=== PATIENT | female | born 1990 | race Caucasian/White ===

== ENCOUNTER 2018-01-01 03:54 | Emergency (ER) | payer OTHER ==
[2018-01-01] MEDS ORDERED: SODIUM CHLORIDE 1,000 ML IV STA (04:12)
--- NOTE | 2018-01-01 04:18 | PDOC ---
History of Present Illness - General Chief Complaint: Pain Stated Complaint: STOMACH PAIN Time Seen by Provider: 01/01/18 04:05 History Source: Patient Exam Limitations: No Limitations - History of Present Illness Travel History: No Initial Comments: 01/01/18 04:13 27-year-old woman with past medical history of kidney stones presents with sudden onset sharp stabbing right flank pain radiates to her right groin starting at approximately midnight this evening. Patient states she took Tylenol prior to coming to the emergency department which has done nothing to help control her pain. Patient also reports having urinary hesitancy and dysuria when tried avoid prior to presenting to the hospital. Patient denies fevers, chills, chest pain, shortness of breath. Nausea present but denies vomiting. Past History - Past Medical History Allergies/Adverse Reactions: Allergies Allergy/AdvReac Type Severity Reaction Status Date / Time No Known Allergies Allergy Verified 01/01/18 04:21 Home Medications: Ambulatory Orders Cephalexin Monohydrate [Keflex -] 500 mg PO Q8H #30 capsule 01/01/18 Tamsulosin HCl [Flomax] 0.4 mg PO DAILY #10 capsule 01/01/18 COPD: No - Suicide/Smoking/Psychosocial Hx Smoking History: Never smoked Have you smoked in the past 12 months: No Hx Alcohol Use: No Drug/Substance Use Hx: No Substance Use Type: None Review of Systems - Review of Systems Able to Perform ROS?: Yes Is the patient limited Urdu proficient: No Constitutional: No: Symptoms Reported HEENTM: No: Symptoms Reported Respiratory: No: Symptoms reported Cardiac (ROS): No: Symptoms Reported ABD/GI: No: Symptoms Reported : Yes: See HPI Musculoskeletal: No: Symptoms Reported Integumentary: No: Symptoms Reported Neurological: No: Symptoms reported Endocrine: No: Symptoms Reported Hematologic/Lymphatic: No: Symptoms Reported *Physical Exam - Physical Exam General Appearance: Yes: Appropriately Dressed. No: Apparent Distress Neck: positive: Trachea midline, Supple Respiratory/Chest: positive: Lungs Clear, Normal Breath Sounds. negative: Respiratory Distress, Accessory Muscle Use Cardiovascular: positive: Regular Rhythm, Regular Rate, S1, S2. negative: Edema , Murmur Gastrointestinal/Abdominal: positive: Normal Bowel Sounds, Tender (RLQ). negative: Soft Musculoskeletal: positive: Normal Inspection, CVA Tenderness (R) Extremity: positive: Normal Capillary Refill, Normal Inspection, Normal Range of Motion Integumentary: positive: Normal Color, Dry, Warm Neurologic: positive: Alert, Normal Response ED Treatment Course - LABORATORY CBC & Chemistry Diagram: 01/01/18 04:28 01/01/18 04:28 Medical Decision Making - Medical Decision Making 01/01/18 04:15 A/P: 27-year-old woman with history of kidney stones with sudden onset right flank pain radiating to her right groin Normoactive bowel sounds Abdomen tender in the right lower quadrant Right-sided CVA tenderness present Physical exam her presentation is consistent with kidney stones. Differential diagnosis includes appendicitis, ovarian torsion, ovarian cyst, pyelonephritis, renal calculi +/- infection Labs, urine, normal saline, spiral CT if HCG(-) 01/01/18 05:53 CT as read by imaging property consultant: Positive for 5.8 mm obstructing distal right ureteral stone at the right ureterovesicular junction This causes moderate right hydronephrosis/hydroureter No left urinary tract stone or obstruction. No other acute intra-abdominal abnormalities No major small ventral hernia containing a bit of omentum but no bowel Fallopian tube occlusion device is incidentally noted. Patient is currently pain-free and has likely passed stone into the bladder. I' ll provide the patient with a strainer to collect stone for analysis. Laboratory testing is unremarkable without signs of LULU. Urinalysis notable for 1+ protein, 1+ blood, 2+ leukoesterase with 48 WBCs. I'll discharge the patient home with prescription for Flomax and Keflex. *DC/Admit/Observation/Transfer Diagnosis at time of Disposition: Renal stone UTI (urinary tract infection) Qualifiers: Urinary tract infection type: urethritis Qualified Code(s): N34.2 - Other urethritis - Discharge Dispostion Disposition: HOME Condition at time of disposition: Fair Decision to Admit order: No - Prescriptions Prescriptions: Cephalexin Monohydrate [Keflex -] 500 mg PO Q8H #30 capsule Tamsulosin HCl [Flomax] 0.4 mg PO DAILY #10 capsule - Referrals Referrals: Dennys Werner [Primary Care Provider] - Pj Lord MD [Staff Physician] - - Patient Instructions Additional Instructions: Rest, drink lots of fluids: Teas, water, soups Avoid contact with others until fevers and symptoms resolved Lots of handwashing and good hygiene Continue geyr-[id number] medications for symptomatic relief Tylenol or Motrin for fever and pain Continue all of antibiotics until completed Followup with private physician in one week for repeat urinalysis/reevaluation Strain urine to try to collect kidney stone. If you collect a stone, bring it with you to urology appointment. Take Flomax 0.4 mg daily until urology evaluation. Take Keflex 500 mg 3 times a day for the next 10 days. Return to emergency department for worsened symptoms, fevers, dehydration - Post Discharge Activity
[2018-01-01 04:21] VITALS: BP 137/95; PULSE 84; TEMP 97.6; BMI 34.3
[2018-01-01] MEDS ORDERED: ONDANSETRON 4 MG/2 ML VIAL IVPUSH ONE (04:32)
[2018-01-01] MEDS ORDERED: ONDANSETRON 4 MG/2 ML VIAL ONE (04:34)
[2018-01-01 04:36] LABS: BASO % 0.4 % (0-2.0); EOS % 1.3 % (0-4.5); HEMATOCRIT 38.1 % (32.4-45.2); HEMOGLOBIN 12.4 GM/dL (10.7-15.3); LYMPH % 39.4 % (8-40); MCH 26.9 pg (25.7-33.7); MCHC 32.5 g/dl (32.0-36.0); MEAN CELL VOLUME 82.7 fl (80-96); MEAN PLT VOLUME 8.4 fl (7.5-11.1); MONO % 6.3 % (3.8-10.2); NEUT % 52.6 % (42.8-82.8); PLATELET COUNT 212 K/MM3 (134-434); RDW 15.2 % (11.6-15.6); WHITE BLOOD COUNT 6.2 K/mm3 (4.0-10.0)
[2018-01-01 04:41] LABS: URINE APPEARANCE SLCLOUDY; URINE BILIRUBIN NEGATIVE (<2.0 mg/dL); URINE COLOR YELLOW; URINE GLUCOSE (UA) NEGATIVE (NEGATIVE); URINE KETONE NEGATIVE (NEGATIVE); URINE NITRITE NEGATIVE (NEGATIVE); URINE UROBILINOGEN NEGATIVE mg/dL (0.2-1.0)
[2018-01-01 04:44] LABS: URINE LEUK ESTERASE 2+ (NEGATIVE); URINE PROTEIN 1+ (NEGATIVE)
[2018-01-01 04:45] LABS: CALCIUM OXALATE CRYSTALS FEW /hpf (NONE SEEN); EPI CELLS FEW /HPF (FEW); URINE BACTERIA FEW /hpf (NONE SEEN); URINE MUCUS MANY
[2018-01-01 04:47] LABS: HCG,QUALITATIVE URINE NEGATIVE
[2018-01-01] MEDS ORDERED: KETOROLAC TROMETHAMINE 30 MG/1 ML VIAL IVPUSH ONE (04:49)
[2018-01-01] MEDS ORDERED: KETOROLAC TROMETHAMINE 30 MG/1 ML VIAL ONE (04:52)
[2018-01-01 05:02] LABS: ALBUMIN 3.8 g/dl (3.4-5.0); ALK PHOS 67 U/L (45-117); ANION GAP 8 (8-16); BILIRUBIN,TOTAL 0.7 mg/dL (0.2-1.0); BLOOD UREA NITROGEN 13 mg/dL (7-18); CALCIUM 8.9 mg/dL (8.5-10.1); CHLORIDE 107 mmol/L (98-107); CO2 27 mmol/L (21-32); CREATININE 0.9 mg/dL (0.55-1.02); GLUCOSE,RANDOM 105 mg/dL (74-106); POTASSIUM 3.9 mmol/L (3.5-5.1); SGOT/AST 16 U/L (15-37); SGPT/ALT 18 U/L (12-78); SODIUM 142 mmol/L (136-145); TOT PROT 7.5 g/dl (6.4-8.2)
== END 2018-01-01 06:34 | disposition home or self-care (01) ==
LOC: JER 03:54
PROC: 3E0337Z Introduction of Electrolytic and Water Balance Substance into Peripheral Vein, Percutaneous Approach (ICD-10-PCS; principal; 2018-01-01)
PROC: 3E033GC Introduction of Other Therapeutic Substance into Peripheral Vein, Percutaneous Approach (ICD-10-PCS; 2018-01-01)
PROC: 3E0333Z Introduction of Anti-inflammatory into Peripheral Vein, Percutaneous Approach (ICD-10-PCS; 2018-01-01)
DX: N20.0 Calculus of kidney (principal); Z87.442 Personal history of urinary calculi; N34.2 Other urethritis
CPT/HCPCS: 36415; 74176; 80053; 81003; 81015; 84703; 85025; 87086; 87186; 96361; 96374; 96375; 99283-25; J7030

== ENCOUNTER 2018-01-02 15:41 | Inpatient (IN) | payer OTHER ==
[~2018-01-02 15:41] MED LIST: IOHEXOL 300 MG/ML INFUS..BTL IV ONE
[2018-01-02] MEDS ORDERED: SODIUM CHLORIDE 1,000 ML IV STA ×3 (16:11→19:56)
[2018-01-02] MEDS ORDERED: KETOROLAC TROMETHAMINE 30 MG/1 ML VIAL IVPUSH ONE (16:12)
[2018-01-02] MEDS ORDERED: ACETAMINOPHEN 500 MG TABLET (FP) PO ONE (16:12)
[2018-01-02 16:14] VITALS: BMI 34.3
--- NOTE | 2018-01-02 16:43 | PDOC ---
History of Present Illness - General History Source: Patient Exam Limitations: No Limitations - History of Present Illness Initial Comments: 01/02/18 18:40 The patient is a 27 year old female with a significant past medical history of kidney stones who presents to the emergency department today for evaluation of kidney stone and pain. The patient reports severe right sided abdominal pain and right sided flank pain since last night. She describes the pain as localized , ranked 10/10 in severity. She reports associated symptoms of nausea, fever, urinary incontinence, and dysuria. The patient was seen in the emergency department yesterday and had a CT done which showed right sided kidney stone. Patient planned to follow up with urologist (01/10/18) next week. The patient states she visits our facility today due to increasing and unbearable pain. The patient denies chest pain, shortness of breath, headache, and dizziness. Denies chills, vomiting, constipation, and diarrhea. Denies hematuria and urinary urgency. Allergies: NKDA Social History: No reported alcohol, cigarette, or drug use. PCP: Dr. Dennys Werner <Thalia Ortiz - Last Filed: 01/02/18 18:43> <Celio Gordon - Last Filed: 01/02/18 19:34> - General Chief Complaint: SIRS, Suspected/Possible Stated Complaint: REVISIT/ KIDNEY STONE/FEVER Time Seen by Provider: 01/02/18 16:09 Past History <Thalia Ortiz - Last Filed: 01/02/18 18:43> - Past Medical History COPD: No Kidney Stones: Yes - Suicide/Smoking/Psychosocial Hx Smoking History: Never smoked Have you smoked in the past 12 months: No Information on smoking cessation initiated: No Hx Alcohol Use: No Drug/Substance Use Hx: No Substance Use Type: None <Celio Gordon - Last Filed: 01/02/18 19:34> - Past Medical History Allergies/Adverse Reactions: Allergies Allergy/AdvReac Type Severity Reaction Status Date / Time No Known Allergies Allergy Verified 01/02/18 16:09 Home Medications: Ambulatory Orders NK [No Known Home Medication] 01/02/18 Review of Systems - Review of Systems Able to Perform ROS?: Yes Comments:: A complete review of 10 out of 10 review of systems is taken and is negative apart from what is previously mentioned below and in the HPI. <Thalia Ortiz - Last Filed: 01/02/18 18:43> *Physical Exam - Vital Signs Last Vital Signs Temp Pulse Resp BP Pulse Ox 102.9 F H 141 H 18 140/75 100 01/02/18 16:10 01/02/18 16:10 01/02/18 16:10 01/02/18 16:10 01/02/18 16:10 - Physical Exam Comments: Vitals: Triage Vital signs reviewed General Appearance: no acute distress, well nourished well developed, Head: Atraumatic, normocephalic Eyes: Pupils equal reactive round, extraocular movement intact Neck: Supple Chest Wall: Nontender Cardiac: Regular rate and rhythm, no murmurs, no rubs, no gallops, Lungs: Clear to auscultation bilateral, good air movement bilaterally, Abdomen: (+)right sided abdominal tenderness to palpation. (+)right flank tenderness to palpation. Extremities: Full range of motion to all extremities, no cyanosis, clubbing, or edema Skin: Warm and dry, no rashes or lesions, no petechiae Psych: normal mood, normal affect <Thalia Ortiz - Last Filed: 01/02/18 18:43> - Vital Signs Last Vital Signs Temp Pulse Resp BP Pulse Ox 102.9 F H 141 H 18 140/75 100 01/02/18 16:10 01/02/18 16:10 01/02/18 16:10 01/02/18 16:10 01/02/18 16:10 <Celio Gordon - Last Filed: 01/02/18 19:34> Heart Score/ECG Review - ECG Impressions Comment:: 01/02/18 19:30 EKG performed at 1730. Demonstrates sinus tachycardia 105. No ST elevations or T -wave inversions. Interpreted by me. <Celio Gordon - Last Filed: 01/02/18 19:34> ED Treatment Course - LABORATORY CBC & Chemistry Diagram: 01/02/18 16:49 01/02/18 16:49 - ADDITIONAL ORDERS Additional order review: Laboratory Results 01/02/18 16:15 Urine Color Yellow Urine Appearance Slcloudy Urine pH 9.0 H D Ur Specific Dexter 1.016 Urine Protein 1+ H Urine Glucose (UA) Negative Urine Ketones Negative Urine Blood 3+ H Urine Nitrite Negative Urine Bilirubin Negative Urine Urobilinogen 4.0 e.u/dl H Ur Leukocyte Esterase Trace - Medications Given in the ED: ED Medications Discontinued Medications Generic Name Dose Route Start Last Admin Trade Name Freq PRN Reason Stop Dose Admin Acetaminophen 975 mg 01/02/18 16:12 01/02/18 16:14 Tylenol - PO 01/02/18 16:13 975 mg ONCE ONE Administration <Thalia Ortiz - Last Filed: 01/02/18 18:43> - LABORATORY CBC & Chemistry Diagram: 01/02/18 16:49 01/02/18 16:49 - Medications Given in the ED: ED Medications Discontinued Medications Generic Name Dose Route Start Last Admin Trade Name Freq PRN Reason Stop Dose Admin Acetaminophen 975 mg 01/02/18 16:12 01/02/18 16:14 Tylenol - PO 01/02/18 16:13 975 mg ONCE ONE Administration <Celio Gordon - Last Filed: 01/02/18 19:34> Medical Decision Making - Medical Decision Making The patient is a 27 year old female with a significant past medical history of kidney stones who presents to the emergency department today for evaluation of kidney stone and pain Plans: EKG Labs 01/02/18 16:[address] Ann. 01/02/18 17:[address] Sauceda. <Thalia Ortiz - Last Filed: 01/02/18 18:43> - Critical Care Time Total Critical Care Time (minutes): 65 Critical Care Statement: The care of this patient involved high complexity decision making to prevent further life threatening deterioration of the patient 's condition and/or to evaluate & treat vital organ system(s) failure or risk of failure. - Medical Decision Making Patient presents to the ED status post diagnosis with kidney stone yesterday today with severe worsening flank pain fever chills nausea vomiting History examination concerning for infected kidney stone. Based on no significant hydronephrosis after discussion with interventional radiology patient not candidate for nephrostomy tube. US interpreted by ED MD. [address] Ann based on presentation there is a concern for an infected stone patient to be transported to OR for stent placement for likely infected kidney stone Upon arrival to the emergency department sepsis protocol initiated patient covered with broad-spectrum antibiotics, Zosyn, treated with IV pain medication IV fluids and antiemetics Case discussed with medicine for medical clearance prior to surgery. Vitamin K ordered for slightly elevated INR Patient to be admitted for further management status post stent placement. 01/02/18 19:33 <Celio Gordon - Last Filed: 01/02/18 19:34> *DC/Admit/Observation/Transfer - Attestations Scribe Attestion: Documentation prepared by Thalia Ortiz, acting as biomedical manager for Celio Gordon MD. <Thalia Ortiz - Last Filed: 01/02/18 18:43> - Discharge Dispostion Decision to Admit order: Yes <Celio Gordon - Last Filed: 01/02/18 19:34> Diagnosis at time of Disposition: Renal colic Sepsis Qualifiers: Sepsis type: sepsis due to unspecified organism Qualified Code(s): A41.9 - Sepsis, unspecified organism
[2018-01-02] MEDS ORDERED: ONDANSETRON 4 MG/2 ML VIAL IVPUSH ONE (16:50)
[2018-01-02] MEDS ORDERED: morphine CARPU-JECT 4 MG/1 ML DISP.SYRIN IVPUSH ONE (16:50)
[2018-01-02] MEDS ORDERED: PIPERACILLIN/TAZOB 3.375 GM 3.375 GM in DEXTROSE 5%-WATER - 50 ML IVPB ONE (16:51)
[2018-01-02 16:54] LABS: URINE APPEARANCE SLCLOUDY; URINE BILIRUBIN NEGATIVE (<2.0 mg/dL); URINE COLOR YELLOW; URINE GLUCOSE (UA) NEGATIVE (NEGATIVE); URINE KETONE NEGATIVE (NEGATIVE); URINE LEUK ESTERASE TRACE (NEGATIVE); URINE NITRITE NEGATIVE (NEGATIVE); URINE UROBILINOGEN 4.0 E.U/dl mg/dL (0.2-1.0)
[2018-01-02 16:55] LABS: URINE PROTEIN 1+ (NEGATIVE)
[2018-01-02 17:00] LABS: EPI CELLS RARE /HPF (FEW)
[2018-01-02] MEDS ORDERED: ACETAMINOPHEN 1000 MG/100 ML VIAL (NON FORMULARY) IVPB ONE (17:04)
[2018-01-02] MEDS ORDERED: morphine SULFATE 4 MG/ML VIAL ONE (17:10)
[2018-01-02] MEDS ORDERED: ONDANSETRON 4 MG/2 ML VIAL ONE (17:10)
[2018-01-02] MEDS ORDERED: PIPERACILLIN/TAZOB 3.375 GM 3.375 GM/50 ML BAG IVPB ONE (17:10)
[2018-01-02 17:13] LABS: BASO % 0.3 % (0-2.0); HEMOGLOBIN 11.5 GM/dL (10.7-15.3); LYMPH % 15.2 % (8-40); MCH 26.8 pg (25.7-33.7); MCHC 32.8 g/dl (32.0-36.0); MEAN CELL VOLUME 81.7 fl (80-96); MEAN PLT VOLUME 8.8 fl (7.5-11.1); MONO % 7.5 % (3.8-10.2); PLATELET COUNT 190 K/MM3 (134-434); RBC 4.28 M/mm3 (3.60-5.2); RDW 15.1 % (11.6-15.6); WHITE BLOOD COUNT 11.7 K/mm3 (4.0-10.0)
[2018-01-02 17:17] LABS: VENOUS PC02 28.5 mmHg (38-52); VENOUS PH 7.53 (7.32-7.42); VENOUS PO2 46.1 mmHg (28-48)
[2018-01-02 17:22] LABS: INR 1.81 (0.82-1.09); PROTHROMBIN TIME (PATIENT) 20.5 SEC (9.7-13.0)
[2018-01-02 17:25] LABS: ACTIVATED PTT 28.1 SECONDS (25.2-36.5)
[2018-01-02 17:26] LABS: ALBUMIN 3.5 g/dl (3.4-5.0); ANION GAP 10 (8-16); BILIRUBIN,TOTAL 1.5 mg/dL (0.2-1.0); BLOOD UREA NITROGEN 9 mg/dL (7-18); CALCIUM 8.5 mg/dL (8.5-10.1); CHLORIDE 105 mmol/L (98-107); CO2 22 mmol/L (21-32); CREATININE 0.8 mg/dL (0.55-1.02); GLUCOSE,RANDOM 115 mg/dL (74-106); SGPT/ALT 17 U/L (12-78); SODIUM 137 mmol/L (136-145); TOT PROT 7.1 g/dl (6.4-8.2)
[2018-01-02 17:27] LABS: ALK PHOS 65 U/L (45-117)
[2018-01-02 17:28] LABS: POTASSIUM 3.6 mmol/L (3.5-5.1); SGOT/AST 21 U/L (15-37)
[2018-01-02] MEDS ORDERED: PHYTONADIONE 10 MG/1 ML AMP IM ONE (18:22)
[2018-01-02] MEDS ORDERED: PHYTONADIONE 10 MG/1 ML AMP ONE (18:29)
--- NOTE | 2018-01-02 18:34 | HP ---
Admitting History and Physical - Primary Care Physician PCP: Non-staff - Admission History of Present Illness: 27 yo F w/ no significant medical history presented to the ED for R flank pain since yesterday. She was diagnosed with kidney stone in the R side last May. Yesterday morning she had sudden onset of R flank pain that was non radiating in the R flank, 10/, stabbing, a/w n/v, fever, chills, urinary incontinence and pain. Yesterday afternoon, she visited the ED, had CT, and discharged home on abx. She came back today with worsening symptoms. Denies chest pain, shortness of breath, diarrhea, hematuria. History Source: Patient Limitations to Obtaining History: No Limitations - Past Medical History Renal/: Yes: Renal Calculi - Past Surgical History Past Surgical History: Yes: None - Smoking History Smoking history: Never smoked Have you smoked in the past 12 months: No - Alcohol/Substance Use Hx Alcohol Use: No Home Medications - Allergies Allergies/Adverse Reactions: Allergies Allergy/AdvReac Type Severity Reaction Status Date / Time No Known Allergies Allergy Verified 01/02/18 16:09 - Home Medications Home Medications: Ambulatory Orders NK [No Known Home Medication] 01/02/18 Family Disease History - Family Disease History Family History: Unremarkable Review of Systems - Review of Systems Constitutional: reports: Chills, Fever Eyes: reports: No Symptoms HENT: reports: No Symptoms Neck: reports: No Symptoms Cardiovascular: reports: No Symptoms Respiratory: reports: No Symptoms Gastrointestinal: reports: No Symptoms Genitourinary: reports: Flank Pain Musculoskeletal: reports: No Symptoms Integumentary: reports: No Symptoms Neurological: reports: No Symptoms Endocrine: reports: No Symptoms Hematology/Lymphatic: reports: No Symptoms Physical Examination Vital Signs: Vital Signs Temperature 98.6 F 01/02/18 18:25 Pulse Rate 106 H 01/02/18 18:25 Respiratory Rate 18 01/02/18 18:25 Blood Pressure 118/73 01/02/18 18:25 O2 Sat by Pulse Oximetry (%) 100 01/02/18 18:25 Constitutional: Yes: Well Nourished, No Distress, Calm Eyes: Yes: Conjunctiva Clear, EOM Intact Cardiovascular: Yes: Regular Rate and Rhythm Respiratory: Yes: CTA Bilaterally Gastrointestinal: Yes: Normal Bowel Sounds, Soft. No: Distention, Tenderness, Tenderness, Rebound Renal/: Yes: CVA Tenderness - Left Edema: No Labs: CBC, BMP 01/02/18 16:49 01/02/18 16:49 Imaging - Results Cat Scan: Report Reviewed, Image Reviewed Assessment/Plan 27 yo F admitted to med-surg for R UVJ stone. Sepsis - 2/2 hydronephrosis from obstructive renal calculus, R UVJ - 8mm in size - urology to place stent - toradol for pain control - zofran for n/v - Received 1L NS bolus, will c/w additional NS bolus and standing fluid - Received zosyn 3.375g x 1, will c/w zosyn Elevated INR - Given 5mg IM vit K - May repeat coag upon urology request FEN - normal lytes - NPO dvt ppx: SCDs Kevin Solares PGY3 [phone] Visit type - Emergency Visit Emergency Visit: Yes ED Registration Date: 01/02/18 Care time: The patient presented to the Emergency Department on the above date and was hospitalized for further evaluation of their emergent condition. - New Patient This patient is new to me today: Yes Date on this admission: 01/03/18 - Critical Care Critical Care patient: No Hospitalist Screening - Colonoscopy Questionnaire Colonoscopy Questionnaire: Colonoscopy Questionnaire - Patient: 50 - 75 years old and never had a screening colonoscopy: Unknown History of colon or rectal polyps, or CA: Unknown History of IBD, Crohn's disease or UC: Unknown History of abdominal radiation therapy as a child: Unknown - Relative: 1 with colon or rectal CA, or polyps at age 60 or younger: Unknown Colon or rectal CA diagnosed at age 45 or younger: Unknown Multiple relatives with colon or rectal CA: Unknown - Outcome: Screening Result: Negative Screen
[2018-01-02] MEDS ORDERED: ONDANSETRON 4 MG/2 ML VIAL IVPUSH PRN (18:43)
[2018-01-02] MEDS ORDERED: MORPHINE SULFATE 2 MG/ML VIAL IVPUSH PRN (18:43)
[2018-01-02] MEDS ORDERED: KETOROLAC TROMETHAMINE 15 MG/ML VIAL IVPUSH PRN (18:43)
--- NOTE | 2018-01-02 18:55 | CON.GU ---
Consult - History of Present Illness History of Present Illness: 27 yo female with h/o nephrolithiasis, now admitted with persistant rt colic secondary to 8mm RUVJ stone. Also with fever, tachycardia. - Past Medical History Renal/: Yes: Renal Calculi - Past Surgical History Past Surgical History: Yes: None - Alcohol/Substance Use Hx Alcohol Use: No - Smoking History Smoking history: Never smoked Have you smoked in the past 12 months: No Home Medications - Allergies Allergies/Adverse Reactions: Allergies Allergy/AdvReac Type Severity Reaction Status Date / Time No Known Allergies Allergy Verified 01/02/18 16:09 - Home Medications Home Medications: Ambulatory Orders NK [No Known Home Medication] 01/02/18 Review of Systems - Review of Systems Genitourinary: reports: Flank Pain, Hematuria Physical Exam- Vital Signs: Vital Signs Temperature 98.6 F 01/02/18 18:25 Pulse Rate 106 H 01/02/18 18:25 Respiratory Rate 18 01/02/18 18:25 Blood Pressure 118/73 01/02/18 18:25 O2 Sat by Pulse Oximetry (%) 100 01/02/18 18:25 Renal/: Yes: CVA Tenderness - Right Labs: CBC, BMP 01/02/18 16:49 01/02/18 16:49 Imaging - Results Cat Scan: Image Reviewed Ultrasound: Report Reviewed Problem List - Problems (1) Right ureteral stone Assessment/Plan: in light of fever, tachycardia, will plan for emergent stent placement. Broad spectrum abx given. IR contacted and since only mild hydro on sono, Dr Sauceda feels that Rt NT may be too risky and will proceed with stent placement Code(s): N20.1 - CALCULUS OF URETER
[2018-01-02] MEDS ORDERED: MIDAZOLAM HCL 2 MG/2 ML SINGLE DOSE VIAL ONE (19:05)
[2018-01-02] MEDS ORDERED: PROPOFOL 20 ML ONE (19:05)
[2018-01-02] MEDS ORDERED: DEXAMETHASONE SOD PHOSPHATE 4 MG/1 ML VIAL ONE (19:06)
[2018-01-02] MEDS ORDERED: LIDOCAINE HCL/PF 2% SDV 5ML VIAL ONE (19:06)
--- NOTE | 2018-01-02 19:28 | OP ---
Operative Note - Note: Operative Date: 01/02/18 Pre-Operative Diagnosis: obstructing RDU stone Operation: cysto/rt stent placement Post-Operative Diagnosis: Same as Pre-op Surgeon: Murray Ann Anesthesia: General Estimated Blood Loss (mls): 0 Operative Report Dictated: Yes
[2018-01-02] MEDS ORDERED: SODIUM CHLORIDE 1,000 ML IV SCH (19:45)
--- NOTE | 2018-01-02 19:59 | PN ---
Teaching Attending Note Name of Resident: Kevin Solares ATTENDING PHYSICIAN STATEMENT I saw and evaluated the patient. I reviewed the resident's note and discussed the case with the resident. I agree with the resident's findings and plan as documented. SUBJECTIVE: Patient is a 27 year old woman with a medical history of kidney stones who presents to the ER for evaluation of right flank pain. She reports severe right sided abdominal pain and right sided flank pain since last night. She describes the pain as localized, ranked 10/10 in severity. There is associated symptoms of nausea, fever, urinary incontinence, and dysuria. The patient was seen in the ER yesterday and a CT scan showed an 8 mm stone at the right UVJ and mld to moderate hydronephrosis - findings confirmed by ultrasound today. She has a family history of kidney stone disease. OBJECTIVE: Alert and in pain Vital Signs Period Temp Pulse Resp BP Sys/Guido Pulse Ox Last 24 Hr 98.6 F-102.9 F 106-141 18-18 118-140/73-75 100-100 HEENT: No Jaundice, eye redness or discharge, PERRLA, EOMI. Normocephalic, atraumatic. External ears are normal and hearing is grossly intact. No nasal discharge. Neck: Supple, nontender. No palpable adenopathy or thyromegaly. No JVD Chest: Good effort. Clear to auscultation and percussion. Heart: Regular. No S3, rub or murmur Abdomen: Not distended, soft, Right CVA tenderness; no HSM. No rebound or guarding. Normoactive bowel sounds. Ext: Peripheral pulses intact. No leg edema. Skin: Warm and dry. No petechiae, rash or ecchymosis. Neuro: Alert. Oriented x3. CN 2-12 grossly intact. Sensation grossly intact in all four extremities and DTR are symmetric. Current Medications Generic Name Dose Route Start Last Admin Trade Name Freq PRN Reason Stop Dose Admin Fentanyl 25 mcg 01/02/18 19:39 Sublimaze Injection - IVPUSH [id number] PRN PAIN-PACU ORDER X 4 DOSES ONLY Sodium Chloride 1,000 mls @ 1,000 mls/hr 01/02/18 18:48 Normal Saline - IV 01/02/18 19:47 ASDIR STA Sodium Chloride 1,000 mls @ 125 mls/hr 01/02/18 19:45 Normal Saline - IV ASDIR ANAND Piperacillin Sod/Tazobactam 50 mls @ 100 mls/hr 01/03/18 02:00 Sod 3.375 gm/ Dextrose IVPB 01/03/18 02:29 ONCE ONE Protocol Piperacillin Sod/Tazobactam 50 mls @ 100 mls/hr 01/03/18 10:00 Sod 3.375 gm/ Dextrose IVPB 01/03/18 10:29 ONCE ONE Protocol Ketorolac Tromethamine 15 mg 01/02/18 18:43 Toradol Injection - IVPUSH 01/07/18 18:42 Q6H PRN PAIN LEVEL 1-5 Morphine Sulfate 2 mg 01/02/18 18:43 Morphine Sulfate IVPUSH Q4H PRN PAIN LEVEL 6-10 Ondansetron HCl 4 mg 01/02/18 18:43 Zofran Injection IVPUSH Q6H PRN NAUSEA Home Medications Medication Instructions Recorded NK [No Known Home Medication] 01/02/18 Abnormal Lab Results 01/02/18 01/02/18 01/02/18 16:15 16:49 16:49 WBC 11.7 H PT with INR 20.50 H INR 1.81 H VBG pH POC VBG pCO2 Random Glucose Total Bilirubin Urine pH 9.0 H D Urine Protein 1+ H Urine Blood 3+ H Urine Urobilinogen 4.0 e.u/dl H 01/02/18 01/02/18 16:49 16:49 WBC PT with INR INR VBG pH 7.53 H POC VBG pCO2 28.5 L Random Glucose 115 H Total Bilirubin 1.5 H Urine pH Urine Protein Urine Blood Urine Urobilinogen ASSESSMENT AND PLAN: 1. Sepsis due to UTI and kidney stone disease - Blood and urine cultures sent. Patient being treated with IV normal saline - bolus and then 100 ml/hour as well as Zosyn 3.375 gm q 8 hours, zofran, toradol and morphine IV. Being evaluated by urology and is getting cystoscopy with possible stenting and stone retrieval. Will refer to Nephrology for a comprehensive work up to search for stone disease risk factor. 2. Abnormal LFTs - Etiology of elevated INR and bilirubin unclear - may be part of the sepsis syndrome. Got vitamin K 5 mg IM before her planned cystoscopy. Sonogram showed splenomegaly but CT scan done on 01/01/18 did not reveal any liver abnormality. Will trend LFTs and get hepatitis serology if no improvement. 3. Obesity - Will provide patient all the necessary assistance , counseling and positive reinforcement to facilitate weight loss. Consult decorating and assembly supervisor. 4. DVT prophylaxis - SCD, Early ambulation 5. Advance directives - Full code
--- NOTE | 2018-01-02 21:01 | OP ---
DATE OF OPERATION: 01/02/2018 PREOPERATIVE DIAGNOSIS: Obstructing right distal ureteral stone with systemic inflammatory response syndrome criteria. POSTOPERATIVE DIAGNOSIS: Obstructing right distal ureteral stone with systemic inflammatory response syndrome criteria. PROCEDURE: Cystoscopy, retrograde pyelogram, and right ureteral stent placement. SURGEON: Brandon Tapia MD INDICATIONS: The patient is a 27-year-old female with a history of chronic nephritis now admitted with persistent right renal colic secondary to an 8-mm right UPJ stone. She has fever and tachycardia. She is taken to the OR emergently for right ureteral stent placement. Interventional Radiology is consulted for possible nephrostomy tube placement; however, they felt uncomfortable due to only the presence of mild hydronephrosis. Based on this, she was taken to the OR for right ureteral stent placement. The risks, benefits, and alternatives were discussed. DESCRIPTION OF PROCEDURE: Patient was taken to the OR and placed supine on the operating table. After cardiac monitors were administered, general anesthesia was established. She was prepped and draped in the dorsal lithotomy position. The ureteroscope was introduced without difficulty and advanced to the bladder. No tumors or stones were noted of the bladder. Attention was turned to the right ureteral orifice. It was intubated with a ureteral catheter. Contrast was injected for retrograde pyelogram and there was hydronephrosis down to the level of the distal ureter, where the stone was seen. A guidewire was then advanced beyond the stone and a 7-Mozambican 24-cm double pigtail stent was then advanced in the Hallman fashion over the guidewire. Fluoroscopy confirmed the stent to be in good position. Patient was woke from anesthesia and transferred to the recovery room in stable condition. There were no complications. Estimated blood loss was zero. BRANDON TAPIA M.D. [id number]
[2018-01-02] MEDS: SODIUM CHLORIDE 1,000 ML IV SCH (21:23)
[2018-01-03] MEDS ORDERED: DEXTROSE 5%-WATER - 50 ML IVPB ONE (00:41)
[2018-01-03] MEDS ORDERED: PIPERACILLIN/TAZOBACTAM 3.375 GM VIAL IVPB ONE (00:41)
[2018-01-03] MEDS ORDERED: PIPERACILLIN/TAZOB 3.375 GM 3.375 GM in DEXTROSE 5%-WATER - 50 ML IVPB ONE ×3 (02:00→10:00)
[2018-01-03] MEDS ORDERED: ACETAMINOPHEN 1000 MG/100 ML VIAL (NON FORMULARY) IVPB ONE (04:02)
[2018-01-03 06:26] LABS: BASO % 0.1 % (0-2.0); HEMATOCRIT 31.5 % (32.4-45.2); HEMOGLOBIN 10.6 GM/dL (10.7-15.3); LYMPH % 15.8 % (8-40); MCH 27.7 pg (25.7-33.7); MCHC 33.6 g/dl (32.0-36.0); MEAN CELL VOLUME 82.5 fl (80-96); MEAN PLT VOLUME 8.4 fl (7.5-11.1); MONO % 4.8 % (3.8-10.2); NEUT % 79.3 % (42.8-82.8); PLATELET COUNT 139 K/MM3 (134-434); RBC 3.82 M/mm3 (3.60-5.2); RDW 15.2 % (11.6-15.6); WHITE BLOOD COUNT 9.8 K/mm3 (4.0-10.0)
[2018-01-03 06:38] LABS: INR 1.7 (0.82-1.09); PROTHROMBIN TIME (PATIENT) 19.2 SEC (9.7-13.0)
[2018-01-03 06:40] LABS: ACTIVATED PTT 30.3 SECONDS (25.2-36.5)
[2018-01-03 07:18] LABS: ANION GAP 7 (8-16); BLOOD UREA NITROGEN 10 mg/dL (7-18); CALCIUM 7.9 mg/dL (8.5-10.1); CHLORIDE 109 mmol/L (98-107); CO2 24 mmol/L (21-32); CREATININE 0.6 mg/dL (0.55-1.02); GLUCOSE,RANDOM 127 mg/dL (74-106); MAGNESIUM 2.1 mg/dL (1.8-2.4); POTASSIUM 3.9 mmol/L (3.5-5.1); SODIUM 140 mmol/L (136-145)
--- NOTE | 2018-01-03 08:07 | PN ---
Progress Note (short form) - Note Progress Note: ID Full note dictated Subjective improvement Selected Entries 01/03/18 06:00 Temperature 97.4 F L Pulse Rate 70 Respiratory 18 Rate Blood Pressure 94/58 Microbiology 01/01/18 06:18 Urine - Urine Clean Catch Urine Culture - Preliminary Group D Strep Or Entero Coccus Laboratory Tests 01/02/18 01/02/18 01/03/18 16:15 16:49 05:30 WBC 9.8 RBC 3.82 Hct 31.5 L Plt Count 139 D BUN Creatinine Creat Clearance w eGFR Lactic Acid 1.1 Ur Leukocyte Esterase Trace Urine WBC (Auto) 16 Urine RBC (Auto) 1230 01/03/18 05:30 WBC RBC Hct Plt Count BUN 10 Creatinine 0.6 Creat Clearance w eGFR > 60 Lactic Acid Ur Leukocyte Esterase Urine WBC (Auto) Urine RBC (Auto) Assessment Kidney stone now with stent subjective improvement Enterococcus in urine c/s Plan As not bacteremic and afebrile can switch to po Amoxicillin 875mg bid for 10 days Nahed MIGUEL Problem List - Problems (1) Right ureteral stone Code(s): N20.1 - CALCULUS OF URETER (2) Sepsis Code(s): A41.9 - SEPSIS, UNSPECIFIED ORGANISM Qualifiers: Sepsis type: sepsis due to unspecified organism Qualified Code(s): A41.9 - Sepsis, unspecified organism (3) UTI (urinary tract infection) Code(s): N39.0 - URINARY TRACT INFECTION, SITE NOT SPECIFIED Qualifiers: Urinary tract infection type: urethritis Qualified Code(s): N34.2 - Other urethritis
--- NOTE | 2018-01-03 08:39 | CONS ---
DATE OF CONSULTATION: DATE OF DICTATION: 01/03/2018 INFECTIOUS DISEASE CONSULTATION HISTORY OF PRESENT ILLNESS: This is a 27-year-old [place] resident whom I am asked to see for evaluation of a urinary tract infection. She presented to the emergency room with a 1-day history of pain in her right flank associated with fever, chills and sweats. The day before she had been in the emergency room and apparently had been discharged with Keflex for a UTI. Because of worsening symptoms, she was admitted further evaluation and treatment. Cultures were obtained during her ER visit and on her admission. She was empirically treated with Zosyn. Subsequently she was seen by Dr. Ann and yesterday had placement of a right stent for an obstructing RDU stone. Since that time she has been afebrile. Subjectively she is much improved, with marked diminution in her level of pain to almost none this morning. Blood cultures are negative as of negative. The urine culture obtained in the emergency room had 100,000 of an enterococcus. She has a history of kidney stones in the past, but has not been treated with any antibiotics other than that started on January 01. She has no other prior medical problems. PAST MEDICAL HISTORY: Includes kidney stones. CURRENT MEDICATIONS: Include piperacillin and tazobactam. ALLERGIES: None known. SOCIAL HISTORY: Nonsmoker. Originally from [place]. Currently living in [place] with her . Mother of 5 children. Unemployed. No substance abuse. HIV status unknown. FAMILY HISTORY: Noncontributory. REVIEW OF SYSTEMS: All systems reviewed and negative. PHYSICAL EXAMINATION: General: She was an alert young woman in no acute distress. Vital Signs: Temperature 97.4, pulse 74, blood pressure 95/58, respirations 18. Neck: Supple, without adenopathy. Lungs: Clear to percussion and auscultation. Heart: S1, S2. Regular rhythm without audible murmur. Abdomen: Soft, nontender, without hepatosplenomegaly. No palpable mass, guarding or rebound. Extremities: No clubbing, cyanosis or edema. Back: No CVA tenderness. DIAGNOSTIC STUDIES: Urinalysis: Trace leukocyte esterase, 16 WBCs, 12 to 30 RBCs. White count 9.8, hemoglobin 10.6, platelets 139. BUN 10, creatinine 0.6. Renal ultrasound shows mild right hydronephrosis with no change as compared to January 01. The left kidney demonstrates no sonographic abnormality, mild splenomegaly noted. ASSESSMENT: Right obstructing stone with secondary urinary tract infection with enterococcus, status post placement of a stent, marked clinical improvement. Blood cultures this morning no growth. Enterococcus in the urine noted. PLAN: Clinically, she does not need to stay on parenteral antibiotics. I will discontinue the Zosyn and substitute amoxicillin, pending final sensitivities, with discharge planning as per her primary care team. HO LEDEZMA M.D. [id number]
[2018-01-03] MEDS ORDERED: ACETAMINOPHEN 1000 MG/100 ML VIAL (NON FORMULARY) IVPB PRN (08:50)
[2018-01-03] MEDS: AMOXICILLIN - 500 MG, AMOXICILLIN - 250 MG PO SCH ×2 (09:57→22:56)
[2018-01-03] MEDS: PHYTONADIONE 5 MG TABLET PO SCH (09:57)
[2018-01-03] MEDS ORDERED: AMOXICILLIN 250 MG CAPSULE PO SCH (10:00)
--- NOTE | 2018-01-03 11:10 | PN ---
Progress Note, Physician Chief Complaint: day 1 s/p cysto, ureteral stent placement - Current Medication List Current Medications: Active Medications Acetaminophen (Ofirmev Injection -) 1,000 mg IVPB Q6H PRN PRN Reason: PAIN LEVEL 6-10 Amoxicillin 500 mg/ (Amoxicillin 250 mg) 750 mg PO BID [facility] Last Admin: 01/03/18 09:57 Dose: 750 mg Sodium Chloride (Normal Saline -) 1,000 mls @ 125 mls/hr IV ASDIR [facility] Last Admin: 01/02/18 21:23 Dose: 125 mls/hr Phytonadione (Mephyton -) 10 mg PO DAILY [facility] Stop: 01/04/18 10:01 Last Admin: 01/03/18 09:57 Dose: 10 mg - Objective Vital Signs: Vital Signs Temperature 97.8 F 01/03/18 10:00 Pulse Rate 83 01/03/18 10:00 Respiratory Rate 18 01/03/18 10:00 Blood Pressure 104/54 01/03/18 10:00 O2 Sat by Pulse Oximetry (%) 99 01/03/18 09:00 Labs: CBC, BMP 01/03/18 05:30 01/03/18 05:30 INR, PTT INR 1.70 (0.82-1.09) H 01/03/18 05:30 Assessment/Plan Doing well after GA for cysto. No anesthetic issues
--- NOTE | 2018-01-03 12:42 | EKG ---
Test Reason : Blood Pressure : / mmHG Vent. Rate : 105 BPM Atrial Rate : 105 BPM P-R Int : 156 ms QRS Dur : 082 ms QT Int : 318 ms P-R-T Axes : 058 066 045 degrees QTc Int : 420 ms SINUS TACHYCARDIA POSSIBLE LEFT ATRIAL ENLARGEMENT BORDERLINE ECG NO PREVIOUS ECGS AVAILABLE Confirmed by KIRSTY MIGUEL, NELLI ([id number]) on 01/03/2018 12:41:40 PM Referred By: Confirmed By:NELLI LOFTON MD
--- NOTE | 2018-01-03 13:21 | PN ---
Teaching Attending Note Name of Resident: Argelia Gonsalez ATTENDING PHYSICIAN STATEMENT I saw and evaluated the patient. I reviewed the resident's note and discussed the case with the resident. I agree with the resident's findings and plan as documented with exceptions below. SUBJECTIVE: Patient seen and examined. some right sided and right flank discomfort but much improved. No nausea, vomiting or fevers. Tolerating diet well. OBJECTIVE: Vital Signs Period Temp Pulse Resp BP Sys/Guido Pulse Ox Last 24 Hr 97.4 F-102.9 F 70-141 15-19 94-140/54-75 99-100 Intake & Output 12/31/17 01/01/18 01/02/18 01/03/18 23:59 23:59 23:59 23:59 Intake Total 1900 2720 Output Total 720 Balance 1180 2720 Weight 200 lb General: sitting in bed in no acute distress Chest: CTAB, no rales or wheezing Abdomen:Soft, mild RMQ and Rt CVA tenderness, NT otherwise, no voluntary or involuntary guarding or rigidity Extremities: no edema Home Medications Medication Instructions Recorded NK [No Known Home Medication] 01/02/18 Active Medications Acetaminophen (Ofirmev Injection -) 1,000 mg IVPB Q6H PRN PRN Reason: PAIN LEVEL 6-10 Amoxicillin 500 mg/ (Amoxicillin 250 mg) 750 mg PO BID [facility] Last Admin: 01/03/18 09:57 Dose: 750 mg Sodium Chloride (Normal Saline -) 1,000 mls @ 125 mls/hr IV ASDIR [facility] Last Admin: 01/02/18 21:23 Dose: 125 mls/hr Phytonadione (Mephyton -) 10 mg PO DAILY [facility] Stop: 01/04/18 10:01 Last Admin: 01/03/18 09:57 Dose: 10 mg Laboratory Results - last 24 hr 01/02/18 01/02/18 01/02/18 16:15 16:35 16:49 WBC 11.7 H RBC 4.28 Hgb 11.5 Hct 35.0 MCV 81.7 MCH 26.8 MCHC 32.8 RDW 15.1 Plt Count 190 MPV 8.8 Absolute Neuts (auto) 9.0 Neutrophils % 77.0 D Lymphocytes % 15.2 D Monocytes % 7.5 Eosinophils % 0.0 D Basophils % 0.3 Nucleated RBC % 0 PT with INR INR PTT (Actin FS) VBG pH POC VBG pCO2 POC VBG pO2 Mixed VBG HCO3 Sodium Potassium Chloride Carbon Dioxide Anion Gap BUN Creatinine Creat Clearance w eGFR Random Glucose Lactic Acid Calcium Magnesium Total Bilirubin AST ALT Alkaline Phosphatase Total Protein Albumin Urine Color Yellow Urine Appearance Slcloudy Urine pH 9.0 H D Ur Specific [place] 1.016 Urine Protein 1+ H Urine Glucose (UA) Negative Urine Ketones Negative Urine Blood 3+ H Urine Nitrite Negative Urine Bilirubin Negative Urine Urobilinogen 4.0 e.u/dl H Ur Leukocyte Esterase Trace Urine WBC (Auto) 16 Urine RBC (Auto) 1230 Ur Epithelial Cells Rare Blood Type O POSITIVE Antibody Screen Negative 01/02/18 01/02/18 01/02/18 16:49 16:49 16:49 WBC RBC Hgb Hct MCV MCH MCHC RDW Plt Count MPV Absolute Neuts (auto) Neutrophils % Lymphocytes % Monocytes % Eosinophils % Basophils % Nucleated RBC % PT with INR 20.50 H INR 1.81 H PTT (Actin FS) 28.1 VBG pH 7.53 H POC VBG pCO2 28.5 L POC VBG pO2 46.1 Mixed VBG HCO3 23.4 Sodium 137 Potassium 3.6 Chloride 105 Carbon Dioxide 22 Anion Gap 10 BUN 9 Creatinine 0.8 Creat Clearance w eGFR > 60 Random Glucose 115 H Lactic Acid Calcium 8.5 Magnesium Total Bilirubin 1.5 H AST 21 ALT 17 Alkaline Phosphatase 65 Total Protein 7.1 Albumin 3.5 Urine Color Urine Appearance Urine pH Ur Specific [place] Urine Protein Urine Glucose (UA) Urine Ketones Urine Blood Urine Nitrite Urine Bilirubin Urine Urobilinogen Ur Leukocyte Esterase Urine WBC (Auto) Urine RBC (Auto) Ur Epithelial Cells Blood Type Antibody Screen 01/02/18 01/02/18 01/02/18 16:49 21:30 21:30 WBC RBC Hgb Hct MCV MCH MCHC RDW Plt Count MPV Absolute Neuts (auto) Neutrophils % Lymphocytes % Monocytes % Eosinophils % Basophils % Nucleated RBC % PT with INR INR PTT (Actin FS) VBG pH POC VBG pCO2 POC VBG pO2 Mixed VBG HCO3 Sodium Potassium Chloride Carbon Dioxide Anion Gap BUN Creatinine Creat Clearance w eGFR Random Glucose Lactic Acid 1.1 0.6 Calcium Magnesium Total Bilirubin AST ALT Alkaline Phosphatase Total Protein Albumin Urine Color Urine Appearance Urine pH Ur Specific [place] Urine Protein Urine Glucose (UA) Urine Ketones Urine Blood Urine Nitrite Urine Bilirubin Urine Urobilinogen Ur Leukocyte Esterase Urine WBC (Auto) Urine RBC (Auto) Ur Epithelial Cells Blood Type O POSITIVE Antibody Screen 01/03/18 01/03/18 01/03/18 05:30 05:30 05:30 WBC 9.8 RBC 3.82 Hgb 10.6 L Hct 31.5 L MCV 82.5 MCH 27.7 MCHC 33.6 RDW 15.2 Plt Count 139 D MPV 8.4 Absolute Neuts (auto) 7.7 Neutrophils % 79.3 Lymphocytes % 15.8 Monocytes % 4.8 Eosinophils % 0.0 Basophils % 0.1 Nucleated RBC % 0 PT with INR 19.20 H INR 1.70 H PTT (Actin FS) 30.3 VBG pH POC VBG pCO2 POC VBG pO2 Mixed VBG HCO3 Sodium 140 Potassium 3.9 Chloride 109 H Carbon Dioxide 24 Anion Gap 7 L BUN 10 Creatinine 0.6 Creat Clearance w eGFR > 60 Random Glucose 127 H Lactic Acid Calcium 7.9 L Magnesium 2.1 Total Bilirubin AST ALT Alkaline Phosphatase Total Protein Albumin Urine Color Urine Appearance Urine pH Ur Specific [place] Urine Protein Urine Glucose (UA) Urine Ketones Urine Blood Urine Nitrite Urine Bilirubin Urine Urobilinogen Ur Leukocyte Esterase Urine WBC (Auto) Urine RBC (Auto) Ur Epithelial Cells Blood Type Antibody Screen CT A/P from 01/01 noted Urine cultures from 01/01 noted. ASSESSMENT AND PLAN: 27 yof with sepsis, complicated UTI and nephrolithiasis. -Sepsis -Complicated UTI -Right nephrolithiasis s/p cystoscopy/stent placement 01/02 -Elevated INR, ?sepsis, vs Vitamin K Deficiency, vs hepatic etiology (no OCPs/ ETOH or illicit drug use) (normal LFTs) Plan: ID input noted. Amoxicillin for 7 days. Urology follow up. PO as tolerated. Abdominal US to assess liver/spleen. Vitamin K 10 mg PO x 2-3 days. Discussed INR findings with patient and need for outpatient follow up and monitoring. Dispo home in 24 hours on oral antibiotics pending above if clinically improved and no new concerns. Plan discussed with patient in detail, all questions answered.
[2018-01-03] MEDS ORDERED: ACETAMINOPHEN 325 MG TABLET (FP) PO PRN (15:17)
--- NOTE | 2018-01-03 18:08 | PN ---
Physical Exam: SUBJECTIVE: Patient seen and examined at bedside this morning while eating her breakfast. She feels much better and her pain is substantially less. She has urinated multiple times without any burning, itching, discomfort or hematuria. Denies any fevers, chills, chest pain, SOB, nausea, vomiting or diarrhea. OBJECTIVE: Vital Signs Period Temp Pulse Resp BP Sys/Guido Pulse Ox Last 24 Hr 97.4 F-98.9 F 70-110 15-20 94-118/54-73 99-100 GENERAL: The patient is awake, alert, and fully oriented, in no acute distress. LUNGS: Breath sounds equal, clear to auscultation bilaterally, no wheezes, no crackles HEART: Regular rate and rhythm, S1, S2 without murmur, rub or gallop. ABDOMEN: Mild RUQ, RLQ and R CVA tenderness, Otherwise Soft, nondistended, normoactive bowel sounds EXTREMITIES: No edema Laboratory Results - last 24 hr 01/02/18 01/02/18 01/02/18 16:35 21:30 21:30 WBC RBC Hgb Hct MCV MCH MCHC RDW Plt Count MPV Absolute Neuts (auto) Neutrophils % Lymphocytes % Monocytes % Eosinophils % Basophils % Nucleated RBC % PT with INR INR PTT (Actin FS) Sodium Potassium Chloride Carbon Dioxide Anion Gap BUN Creatinine Creat Clearance w eGFR Random Glucose Lactic Acid 0.6 Calcium Magnesium Blood Type O POSITIVE O POSITIVE Antibody Screen Negative 01/03/18 01/03/18 01/03/18 05:30 05:30 05:30 WBC 9.8 RBC 3.82 Hgb 10.6 L Hct 31.5 L MCV 82.5 MCH 27.7 MCHC 33.6 RDW 15.2 Plt Count 139 D MPV 8.4 Absolute Neuts (auto) 7.7 Neutrophils % 79.3 Lymphocytes % 15.8 Monocytes % 4.8 Eosinophils % 0.0 Basophils % 0.1 Nucleated RBC % 0 PT with INR 19.20 H INR 1.70 H PTT (Actin FS) 30.3 Sodium 140 Potassium 3.9 Chloride 109 H Carbon Dioxide 24 Anion Gap 7 L BUN 10 Creatinine 0.6 Creat Clearance w eGFR > 60 Random Glucose 127 H Lactic Acid Calcium 7.9 L Magnesium 2.1 Blood Type Antibody Screen Microbiology 01/02/18 16:49 Blood - Peripheral Venous Blood Culture - Preliminary NO GROWTH OBTAINED AFTER 24 HOURS, INCUBATION TO CONTINUE FOR 4 DAYS. 01/02/18 16:35 Blood - Peripheral Venous Blood Culture - Preliminary NO GROWTH OBTAINED AFTER 24 HOURS, INCUBATION TO CONTINUE FOR 4 DAYS. Active Medications Acetaminophen (Ofirmev Injection -) 1,000 mg IVPB Q6H PRN PRN Reason: PAIN LEVEL 6-10 Acetaminophen (Tylenol -) 650 mg PO Q6H PRN PRN Reason: Fever Last Admin: 01/03/18 15:27 Dose: 650 mg Amoxicillin 500 mg/ (Amoxicillin 250 mg) 750 mg PO BID [facility] Last Admin: 01/03/18 09:57 Dose: 750 mg Sodium Chloride (Normal Saline -) 1,000 mls @ 125 mls/hr IV ASDIR [facility] Last Admin: 01/02/18 21:23 Dose: 125 mls/hr Phytonadione (Mephyton -) 10 mg PO DAILY [facility] Stop: 01/04/18 10:01 Last Admin: 01/03/18 09:57 Dose: 10 mg ASSESSMENT/PLAN: 27 y/o F admitted for Sepsis, compliated UTI and R UVJ stone 1. Sepsis - 2/2 hydronephrosis from 8mm obstructive renal calculus - S/P Cystoscopy/Stent Placed (01/02) - Acetaminophen for pain control - ID Consulted, Enterococcus in urine cx, switch to po Amoxicillin 875mg bid for 10 days - Spoke with Dr. Ann, Can discharge patient pending cultures and afebrile for 24 hours 2. Elevated INR - Given 5mg IM vit K on admission, consider Vitamin K 10 mg - Abdominal US to assess liver/spleen - Outpatient follow up and monitoring 3. FEN - Normal Saline 1,000 mls @ 125 mls - lytes WNL - Advance diet as tolerated 4, Dvt ppx - SCDs Dispo: likely d/c tmrw Visit type - Emergency Visit Emergency Visit: No - New Patient This patient is new to me today: Yes Date on this admission: 01/03/18 - Critical Care Critical Care patient: No
[2018-01-03] MEDS: SODIUM CHLORIDE 1,000 ML IV SCH (21:00)
[2018-01-03] MEDS ORDERED: PT OWN MED DRAWER 7, Y5N ONE (21:03)
[2018-01-04 06:23] LABS: BASO % 0.1 % (0-2.0); EOS % 0.2 % (0-4.5); HEMATOCRIT 30.2 % (32.4-45.2); HEMOGLOBIN 10.2 GM/dL (10.7-15.3); LYMPH % 31.5 % (8-40); MCH 27.9 pg (25.7-33.7); MCHC 33.8 g/dl (32.0-36.0); MEAN CELL VOLUME 82.4 fl (80-96); MEAN PLT VOLUME 8.6 fl (7.5-11.1); MONO % 6.6 % (3.8-10.2); NEUT % 61.6 % (42.8-82.8); PLATELET COUNT 168 K/MM3 (134-434); RBC 3.66 M/mm3 (3.60-5.2); RDW 15.7 % (11.6-15.6); WHITE BLOOD COUNT 11.7 K/mm3 (4.0-10.0)
[2018-01-04 06:37] LABS: INR 1.29 (0.82-1.09); PROTHROMBIN TIME (PATIENT) 14.6 SEC (9.7-13.0)
[2018-01-04 06:56] LABS: CHLORIDE 111 mmol/L (98-107); POTASSIUM 3.5 mmol/L (3.5-5.1); SODIUM 142 mmol/L (136-145)
[2018-01-04 07:05] LABS: ALBUMIN 2.7 g/dl (3.4-5.0); ALK PHOS 54 U/L (45-117); ANION GAP 6 (8-16); BILIRUBIN,TOTAL 0.4 mg/dL (0.2-1.0); BLOOD UREA NITROGEN 14 mg/dL (7-18); CALCIUM 7.9 mg/dL (8.5-10.1); CO2 25 mmol/L (21-32); CREATININE 0.6 mg/dL (0.55-1.02); GLUCOSE,RANDOM 93 mg/dL (74-106); PHOSPHOROUS 2.3 mg/dL (2.5-4.9); SGOT/AST 9 U/L (15-37); SGPT/ALT 15 U/L (12-78); TOT PROT 5.9 g/dl (6.4-8.2)
--- NOTE | 2018-01-04 08:27 | PN ---
Teaching Attending Note Name of Resident: Argelia Gonsalez ATTENDING PHYSICIAN STATEMENT I saw and evaluated the patient. I reviewed the resident's note and discussed the case with the resident. I agree with the resident's findings and plan as documented with exceptions below. SUBJECTIVE: Patient seen and examined. mnimal right sided pain but markedly improved. No fevers, chills, nausea, vomiting or urinary symptoms. Tolerating diet well. OBJECTIVE: Vital Signs Period Temp Pulse Resp BP Sys/Guido Pulse Ox Last 24 Hr 97.8 F-98.5 F 76-88 18-20 100-117/54-72 99-99 Intake & Output 01/01/18 01/02/18 01/03/18 01/04/18 23:59 23:59 23:59 23:59 Intake Total 1900 2720 1500 Output Total 720 Balance 1180 2720 1500 Weight 200 lb General: sitting in bed in no acute distress Abdomen: soft, mild RMQ and Right CVA tenderness, markedly improved, NT otherwise, ND, positive bowel sounds Active Medications Acetaminophen (Ofirmev Injection -) 1,000 mg IVPB Q6H PRN PRN Reason: PAIN LEVEL 6-10 Acetaminophen (Tylenol -) 650 mg PO Q6H PRN PRN Reason: Fever Last Admin: 01/03/18 15:27 Dose: 650 mg Amoxicillin 500 mg/ (Amoxicillin 250 mg) 750 mg PO BID [facility] Last Admin: 01/03/18 22:56 Dose: 750 mg Sodium Chloride (Normal Saline -) 1,000 mls @ 125 mls/hr IV ASDIR [facility] Last Admin: 01/03/18 21:00 Dose: 125 mls/hr Phytonadione (Mephyton -) 10 mg PO DAILY [facility] Stop: 01/04/18 10:01 Last Admin: 01/03/18 09:57 Dose: 10 mg Potassium Phos/Sodium Phos (Phos-Nak Packet -) 2 packet PO BID [facility] Stop: 01/04/18 22:01 Laboratory Results - last 24 hr 01/04/18 01/04/18 01/04/18 05:30 05:30 05:30 WBC 11.7 H RBC 3.66 Hgb 10.2 L Hct 30.2 L MCV 82.4 MCH 27.9 MCHC 33.8 RDW 15.7 H Plt Count 168 D MPV 8.6 Absolute Neuts (auto) 7.2 Neutrophils % 61.6 D Lymphocytes % 31.5 D Monocytes % 6.6 Eosinophils % 0.2 D Basophils % 0.1 Nucleated RBC % 0 PT with INR 14.60 H INR 1.29 H Sodium 142 Potassium 3.5 Chloride 111 H Carbon Dioxide 25 Anion Gap 6 L BUN 14 Creatinine 0.6 Creat Clearance w eGFR > 60 Random Glucose 93 Calcium 7.9 L Phosphorus 2.3 L Magnesium 2.0 Total Bilirubin 0.4 AST 9 L ALT 15 Alkaline Phosphatase 54 D Total Protein 5.9 L Albumin 2.7 L Microbiology 01/02/18 16:49 Blood - Peripheral Venous Blood Culture - Preliminary NO GROWTH OBTAINED AFTER 24 HOURS, INCUBATION TO CONTINUE FOR 4 DAYS. 01/02/18 16:35 Blood - Peripheral Venous Blood Culture - Preliminary NO GROWTH OBTAINED AFTER 24 HOURS, INCUBATION TO CONTINUE FOR 4 DAYS. ASSESSMENT AND PLAN: 27 yof with sepsis, complicated UTI and nephrolithiasis. -Sepsis -Complicated UTI -Right nephrolithiasis s/p cystoscopy/stent placement 01/02 -Elevated INR, ?sepsis, vs Vitamin K Deficiency, vs hepatic etiology (no OCPs/ ETOH or illicit drug use) (normal LFTs) Plan: ID input noted. Amoxicillin for total 10 days. Blood cx neg. urine cultures from 01/01 noted, ID input appreciated. Will d/c on amoxicillin. patient has been notified of the pending urine cultures and reachable contact info in chart. Outpatient urology follow up for lithotripsy and stent removal. . INR improved. Abdominal US with hepatosplenomegaly, outpatient follow up. s/p vitamin K Patient aware of need for outpatient INR follow up, pending final urine culture results and need for outpatient urology and INR follow up. Dispo dc home on oral abx with outpatient Urology follow up. Plan discussed with patient in detail, all questions answered.
[2018-01-04] MEDS ORDERED: PT OWN MED DRAWER 7, Y5N ONE (08:45)
--- NOTE | 2018-01-04 09:56 | PN ---
Progress Note (short form) - Note Progress Note: afebrile no flank pain blood cx neg urine culture pending will obtain KUB today must wait for urine culture results prior to discharge to ensure appropriate abx coverage outpt f/u for lithotripsy Problem List - Problems (1) Right ureteral stone Code(s): N20.1 - CALCULUS OF URETER
[2018-01-04] MEDS: AMOXICILLIN - 500 MG, AMOXICILLIN - 250 MG PO SCH (10:00)
[2018-01-04] MEDS ORDERED: NAPH,MB-DB/K PH,MBDB POWDER PACKET PO SCH (10:00)
[2018-01-04] MEDS: PHYTONADIONE 5 MG TABLET PO SCH (10:01)
[2018-01-04 10:40] VITALS: BP 116/63; PULSE 108; TEMP 98.2
--- NOTE | 2018-01-04 11:29 | PN ---
Progress Note, Physician Chief Complaint: ID Clinical improvement noted NO fever on oral antibiotics - Current Medication List Current Medications: Active Medications Acetaminophen (Ofirmev Injection -) 1,000 mg IVPB Q6H PRN PRN Reason: PAIN LEVEL 6-10 Acetaminophen (Tylenol -) 650 mg PO Q6H PRN PRN Reason: Fever Last Admin: 01/03/18 15:27 Dose: 650 mg Amoxicillin 500 mg/ (Amoxicillin 250 mg) 750 mg PO BID [facility] Last Admin: 01/04/18 10:00 Dose: 750 mg Sodium Chloride (Normal Saline -) 1,000 mls @ 125 mls/hr IV ASDIR [facility] Last Admin: 01/03/18 21:00 Dose: 125 mls/hr Potassium Phos/Sodium Phos (Phos-Nak Packet -) 2 packet PO BID [facility] Stop: 01/04/18 22:01 Last Admin: 01/04/18 10:00 Dose: 2 packet - Objective Vital Signs: Vital Signs Temperature 98.2 F 01/04/18 10:00 Pulse Rate 108 H 01/04/18 10:00 Respiratory Rate 18 01/04/18 10:00 Blood Pressure 116/63 01/04/18 10:00 O2 Sat by Pulse Oximetry (%) 98 01/04/18 09:00 Constitutional: Yes: Well Nourished, No Distress HENT: Yes: WNL, Atraumatic Neck: Yes: WNL, Supple Cardiovascular: Yes: Regular Rate and Rhythm, S1, S2 Respiratory: Yes: WNL, Regular, CTA Bilaterally Gastrointestinal: Yes: WNL, Normal Bowel Sounds, Soft Labs: CBC, BMP 01/04/18 05:30 01/04/18 05:30 INR, PTT INR 1.29 (0.82-1.09) H 01/04/18 05:30 Problem List - Problems (1) Right ureteral stone Code(s): N20.1 - CALCULUS OF URETER (2) Sepsis Code(s): A41.9 - SEPSIS, UNSPECIFIED ORGANISM Qualifiers: Sepsis type: sepsis due to unspecified organism Qualified Code(s): A41.9 - Sepsis, unspecified organism (3) UTI (urinary tract infection) Code(s): N39.0 - URINARY TRACT INFECTION, SITE NOT SPECIFIED Qualifiers: Urinary tract infection type: urethritis Qualified Code(s): N34.2 - Other urethritis Assessment/Plan Microbiology 01/02/18 16:49 Blood - Peripheral Venous Blood Culture - Preliminary NO GROWTH OBTAINED AFTER 24 HOURS, INCUBATION TO CONTINUE FOR 4 DAYS. 01/02/18 16:35 Blood - Peripheral Venous Blood Culture - Preliminary NO GROWTH OBTAINED AFTER 24 HOURS, INCUBATION TO CONTINUE FOR 4 DAYS. 01/01/18 06:18 Urine - Urine Clean Catch Urine Culture - Preliminary Group D Strep Or Entero Coccus Laboratory Tests 01/04/18 01/04/18 05:30 05:30 WBC 11.7 H Hgb 10.2 L Hct 30.2 L Plt Count 168 D BUN 14 Creatinine 0.6 Assessment Obstructing stone with UTI Enterococcus Plan Oral Amox as ordered 10 days Sensitivity will not be availabel until tomorrow Would discharge Nahed MIGUEL
[2018-01-04] MEDS: SODIUM CHLORIDE 1,000 ML IV SCH (11:46)
--- NOTE | 2018-01-04 21:57 | DS ---
Physical Exam: SUBJECTIVE: Patient seen and examined at bedside this morning while eating her breakfast. Pain has improved. Denies fevers, chills, chest pain, SOB, nausea vomiting. No acute overnight events. OBJECTIVE: Vital Signs Period Temp Pulse Resp BP Sys/Guido Pulse Ox Last 24 Hr 98.1 F-98.2 F 76-108 18-20 114-117/62-72 98 PHYSICAL EXAM GENERAL: The patient is awake, alert, and fully oriented, in no acute distress. LUNGS: Breath sounds equal, clear to auscultation bilaterally, no wheezes, no crackles HEART: Regular rate and rhythm, S1, S2 without murmur, rub or gallop. ABDOMEN: Mild RUQ, RLQ and R CVA tenderness, Otherwise Soft, nondistended, normoactive bowel sounds EXTREMITIES: No edema LABS Laboratory Results - last 24 hr 01/04/18 01/04/18 01/04/18 05:30 05:30 05:30 WBC 11.7 H RBC 3.66 Hgb 10.2 L Hct 30.2 L MCV 82.4 MCH 27.9 MCHC 33.8 RDW 15.7 H Plt Count 168 D MPV 8.6 Absolute Neuts (auto) 7.2 Neutrophils % 61.6 D Lymphocytes % 31.5 D Monocytes % 6.6 Eosinophils % 0.2 D Basophils % 0.1 Nucleated RBC % 0 PT with INR 14.60 H INR 1.29 H Sodium 142 Potassium 3.5 Chloride 111 H Carbon Dioxide 25 Anion Gap 6 L BUN 14 Creatinine 0.6 Creat Clearance w eGFR > 60 Random Glucose 93 Calcium 7.9 L Phosphorus 2.3 L Magnesium 2.0 Total Bilirubin 0.4 AST 9 L ALT 15 Alkaline Phosphatase 54 D Total Protein 5.9 L Albumin 2.7 L IMAGING: - Spiral CT: 8 mm right UVJ calculus with mild to moderate hydronephrosis. - Renal US: Mild right hydronephrosis is noted without obvious interval change comparison to a CT exam performed on 01/01/2018. The left kidney demonstrates no sonographic abnormality. Mild splenomegaly. - Abdominal US: Mild hepatosplenomegaly with diffuse fatty infiltration of the liver. HOSPITAL COURSE: Date of Admission:01/02/18 Date of Discharge: 01/04/18 Prehospital course as per Dr. Kevin Solares 27 yo F w/ no significant medical history presented to the ED for R flank pain since yesterday. She was diagnosed with kidney stone in the R side last May. Yesterday morning she had sudden onset of R flank pain that was non radiating in the R flank, 10/10, stabbing, a/w n/v, fever, chills, urinary incontinence and pain. Yesterday afternoon, she visited the ED, had CT, and discharged home on abx. She came back today with worsening symptoms. Denies chest pain, shortness of breath, diarrhea, hematuria. Hospital course Patient was admitted for Sepsis likely due to an obstructive renal calculus. Urology was consulted and an emergent stent was placed. Her blood cultures were negative and her urine cultures were pending. Patients pain continued to improve on serial exams. She was started on Amoxicillin for 10 days and told she would be contacted if her medication needed to be changed when the final urine culture report was available (Cell #: [phone]). Patient was additionally found to have an elevated INR and Vitamin K was given. An abdominal Ultrasound also showed patient had diffuse fatty infiltration of the liver. Patient will need to follow up outpatient with Urology for stent removal and lithotripsy as well as with her primary to further manage her INR. Minutes to complete discharge: 37 Discharge Summary Reason For Visit: UTI/RENAL COLIC Condition: Good - Instructions Diet, Activity, Other Instructions: You were found to have a stone in the right Kidney and a stent was placed. It will require follow up with your urologist, Dr. Ann. Call Dr. Ann's office on discharge to schedule follow up in 1 week to discuss stent removal and lithotripsy. You are being discharged on Ampicillin (an antibiotic), to be taken twice a day starting tonight for 8 days, ending on January 12. Urine cultures should be back tomorrow. If there is any change in medications, I will call you at [phone] or on your husbands cell phone at [phone]. Your blood cultures (test to check for infection in blood) are negative at 24 hours, final results can take upto 5 days. You will be notified if any new concerns. You can have your doctor follow up on final results. On admission, your INR (a blood test indicative of blood clotting) was elevated. During your stay, you were given Vitamin K. The INR has since improved however it requires follow up with your primary doctor. During you stay, an Abdominal Ultrasound was preformed that found a slightly large liver with fat. It is important you follow up this finding with your primary doctor to discuss further management. Blood test: PT/INR check with your doctor in 1 week. If persistently elevated or new concerns, you will need outpatient referral to hematology. Please discuss with your doctor. If you have any worrisome symptoms, such as fevers, chest pain or Shortness of breath, please come to the Emergency room as soon as possible. Referrals: Murray Ann MD [Staff Physician] - Disposition: HOME - Home Medications Comprehensive Discharge Medication List: Ambulatory Orders Acetaminophen [Tylenol .Regular Strength -] 650 mg PO Q6H PRN tablet 01/04/18 Amoxicillin - [Amoxicillin 875mg Tablet -] 875 mg PO BID #[id number] tab 01/04/18 This patient is new to me today: No Emergency Visit: Yes ED Registration Date: 01/02/18 Care time: The patient presented to the Emergency Department on the above date and was hospitalized for further evaluation of their emergent condition. Critical Care patient: No - Discharge Referral Referred to [facility] No
== END 2018-01-04 15:11 | disposition home or self-care (01) | DRG 720 ==
LOC: JER 15:41 → JERBED 18:11 → JER 18:38 → J4W 20:42
PROVIDERS: ADMIT Internal Medicine; ATTEND Hospitalist
PROC: BT1BZZZ Fluoroscopy of Bladder and Urethra (ICD-10-PCS; 2018-01-02)
PROC: 0T768DZ Dilation of Right Ureter with Intraluminal Device, Via Natural or Artificial Opening Endoscopic (ICD-10-PCS; principal; 2018-01-02 19:09)
DX: A41.9 Sepsis, unspecified organism (principal); N13.6 Pyonephrosis; K76.0 Fatty (change of) liver, not elsewhere classified; N20.2 Calculus of kidney with calculus of ureter; E56.1 Deficiency of vitamin K; N39.0 Urinary tract infection, site not specified; E66.9 Obesity, unspecified; Z68.34 Body mass index [BMI] 34.0-34.9, adult; B95.2 Enterococcus as the cause of diseases classified elsewhere
CPT/HCPCS: 36415; 76000-TC-FY; 76700-TC; 76775-TC; 80048; 80053; 81003; 81015; 82803; 83605; 83735; 84100; 85025; 85610; 85730; 86850; 86900; 86901; 87040; 87086; 93005; 93010; 94760; 99285-25; J0131; J7030

== ENCOUNTER 2018-11-25 19:08 | Emergency (ER) | payer OTHER ==
[2018-11-25 19:18] VITALS: TEMP 97.8; BMI 30.9
--- NOTE | 2018-11-25 19:22 | PDOC ---
History of Present Illness - General Chief Complaint: Palpitations Stated Complaint: HEART PALPITATION Time Seen by Provider: 11/25/18 19:21 - History of Present Illness Initial Comments: 11/25/18 19:44 The patient is a 28 year old female with a history of kidney stones who presents for evaluation of shortness of breath and lightheadedness. The patient notes that she awoke from a nap just prior to presentation to the ED and ate some sugary food. She notes that she had a mild headache as well and took an exedrin which she normally does not take with some caffinated soda. She subsequently began to experience a sensation that she could not catch her breath with associated tingling in her hands, lightheadedness, and nausea prompting her to present to the ED for further evaluation. On presentation to the ED, she states that her symptoms have completely resolved and she is currently asymptomatic. She otherwise denies fevers, chills, chest pain, palpitations, vomiting, abdominal pain, or changes with urination or bowel movements. Past History - Past Medical History Allergies/Adverse Reactions: Allergies Allergy/AdvReac Type Severity Reaction Status Date / Time No Known Allergies Allergy Verified 11/25/18 19:18 Home Medications: Ambulatory Orders NK [No Known Home Medication] 11/25/18 COPD: No Kidney Stones: Yes - Suicide/Smoking/Psychosocial Hx Smoking History: Never smoked Have you smoked in the past 12 months: No Hx Alcohol Use: No Drug/Substance Use Hx: No Substance Use Type: None Hx Substance Use Treatment: No Review of Systems - Review of Systems Comments:: 11/25/18 19:47 Constitutional: No fevers, chills, fatigue, malaise HEENT: No Rhinorrhea, nasal congestion, visual changes Cardiovascular: Lightheadedness. No chest pain, syncope, palpitations, Respiratory: SOB. No Cough, Hemoptysis, Gastrointestinal: Nausea, No Abdominal pain, Vomiting, Constipation, Diarrhea, Melena Genitourinary: No Dysuria, Frequency, Urgency, Hesitancy, Hematuria, Flank pain Musculoskeletal: No Myalgia, arthralgia Skin: No rashes, itching, bruising, pallor Neurologic: Tingling, No Headache, Dizziness, Numbness, Weakness, Psychiatric: No Hallucinations. No SI or HI *Physical Exam - Vital Signs Last Vital Signs Temp Pulse Resp BP Pulse Ox 97.8 F 90 18 122/78 100 11/25/18 19:17 11/25/18 19:17 11/25/18 19:17 11/25/18 19:17 11/25/18 19:17 - Physical Exam Comments: 11/25/18 19:47 General Appearance: Nourished. No Apparent Distress HEENT: EOMI, MACKENZIE. No Pharyngeal Erythema, Tonsillar Exudate, Tonsillar Erythema Neck: No Cervical Lymphadenopathy Respiratory/Chest: Lungs Clear, Normal Breath Sounds. No Crackles, Rales, Rhonchi, Wheezing Cardiovascular: Regular Rhythm, Regular Rate. No Murmur, Gallops, Rubs Gastrointestinal/Abdominal: Normal Bowel Sounds, Soft. No Guarding, Rebound, Tenderness Musculoskeletal: No CVA Tenderness Extremity: Normal Capillary Refill Integumentary: Normal Color, Dry, Warm Neurologic: stone splitter II-XII NML intact, Fully Oriented, Alert, Normal Mood/Affect, Normal Response, Motor Strength 5/5. Heart Score/ECG Review #1 ECG reviewed & interpreted by me at: 19:48 General ECG Interpretation: Sinus Rhythm, Normal Rate, Normal Intervals, No acute ischemic changes ED Treatment Course - LABORATORY CBC & Chemistry Diagram: 11/25/18 19:52 11/25/18 19:52 Medical Decision Making - Medical Decision Making 11/25/18 19:48 The patient is a 28 year old female with a history of kidney stones who presents for evaluation of shortness of breath and lightheadedness. Differential includes but is not limited to: ACS, Arrhythmia, Anxiety attack, Infectious, metabolic derangement. Given the patient's history and physical exam, it is likely the patient's symptoms are due to an anxiety attack. However , we will obtain a cbc, cmp, troponin, ekg to evaluate further. We will treat with iv fluids and continue to monitor and reassess while here in the ED. 11/25/18 21:08 CBC, cmp, troponin, are unremarkable. The patient was reassessed and reports improvement in their symptoms. We are comfortable discharging the patient home in stable condition. Patient and family made aware of impression and plan, return precautions discussed including but not limited to worsening pain or symptoms, fevers, or signs of infection, chest pain, respiratory distress, inability to tolerate oral intake, dehydration, syncope, or neurologic changes. The patient is to follow up with PMD as recommended within 1 week, follow up information provided and the patient will call for an appointment. The patient is to take medications as instructed for duration of time and continue with supportive care, avoid triggers and precipitants. Patient is safe for outpatient follow-up. *DC/Admit/Observation/Transfer Diagnosis at time of Disposition: Shortness of breath - Discharge Dispostion Disposition: HOME Condition at time of disposition: Stable - Referrals - Patient Instructions Printed Discharge Instructions: DI for Panic Disorder Additional Instructions: 1) Please follow-up with your primary care doctor in the next 2-3 days. Please call tomorrow to schedule a follow up appointment. If you cannot follow up with your doctor within 1 week please return to the Emergency Department for any urgent issues. 2) Your laboratory and EKG results were normal here in the ER. 3) If you have any worsening of symptoms or any other concerns please return to the ER immediately. Return if worsening symptoms including fevers, headache, vomiting, visual or hearing disturbances, abdominal pain, chest pain, shortness of breath, syncope, dehydration, inability to take things by mouth/vomiting, altered mental status, or worsening concerning symptoms. 4) Please continue taking your home medications as directed. - Post Discharge Activity
[2018-11-25] MEDS ORDERED: SODIUM CHLORIDE 1,000 ML IV STA (19:43)
[2018-11-25 20:09] LABS: BASO % 0.6 % (0-2.0); HEMATOCRIT 36.3 % (32.4-45.2); LYMPH % 29.2 % (8-40); MCH 28.8 pg (25.7-33.7); MEAN CELL VOLUME 87.4 fl (80-96); MEAN PLT VOLUME 8.2 fl (7.5-11.1); MONO % 6.4 % (3.8-10.2); NEUT % 62.8 % (42.8-82.8); RBC 4.15 M/mm3 (3.60-5.2); WHITE BLOOD COUNT 8.2 K/mm3 (4.0-10.0)
[2018-11-25 20:43] LABS: ALBUMIN 3.6 g/dl (3.4-5.0); ALK PHOS 63 U/L (45-117); ANION GAP 6 MMOL/L (8-16); BILIRUBIN,TOTAL 0.8 mg/dL (0.2-1); BLOOD UREA NITROGEN 17.1 mg/dL (7-18); CALCIUM 8.7 mg/dL (8.5-10.1); CHLORIDE 106 mmol/L (98-107); CO2 29 mmol/L (21-32); CREATININE 0.8 mg/dL (0.55-1.3); GLUCOSE,RANDOM 92 mg/dL (74-106); POTASSIUM 3.8 mmol/L (3.5-5.1); SGOT/AST 13 U/L (15-37); SGPT/ALT 16 U/L (13-61); SODIUM 141 mmol/L (136-145); TOT PROT 6.9 g/dl (6.4-8.2)
[2018-11-25 21:38] LABS: PLATELET COUNT 206 K/MM3 (134-434); PLATELET ESTIMATE ADEQUATE
[2018-11-25 21:43] VITALS: BP 114/71; PULSE 84
--- NOTE | 2018-11-25 22:17 | PDOC ---
Documentation entered by Hakeem Delgado SCRIBE, acting as scribe for Karly Ordoñez MD. Karly Ordoñez MD: This documentation has been prepared by the Danny chandler Daniel, SCRIBE, under my direction and personally reviewed by me in its entirety. I confirm that the documentation accurately reflects all work, treatment, procedures, and medical decision making performed by me. Attending Attestation - Resident Resident Name: Hakeem Hunter - ED Attending Attestation I have performed the following: I have examined & evaluated the patient, The case was reviewed & discussed with the resident, I agree w/resident's findings & plan - HPI HPI: 11/25/18 19:49 The patient is a 28 year old female with no past medical history here today for evaluation of heart palpitations. The patient reports that she had a migraine tonight after eating sugary waffles and took an excedrin with 65mg caffeine and drank a bottle of coke. She states that she began to feel lightheaded, nausea, tingling in her hands, and an inability to catch her breath. Patient denies headache, lightheadedness. Denies fever, chills. Denies chest pain, heart palpitations. Denies vomiting, diarrhea, abdominal pain. Allergies: NKA 11/25/18 21:30 - Physicial Exam PE: 11/25/18 21:31 GENERAL: Awake, alert, and fully oriented, in no acute distress HEAD: No signs of trauma EYES: PERRLA, EOMI, sclera anicteric, conjunctiva clear ENT: Auricles normal inspection, hearing grossly normal, nares patent, oropharynx clear without exudates. Moist mucosa NECK: Normal ROM, supple, no lymphadenopathy, JVD, or masses LUNGS: Breath sounds equal, clear to auscultation bilaterally. No wheezes, and no crackles HEART: Regular rate and rhythm, normal S1 and S2, no murmurs, rubs or gallops ABDOMEN: Soft, nontender, normoactive bowel sounds. No guarding, no rebound. No masses EXTREMITIES: Normal range of motion, no edema. No clubbing or cyanosis. No cords, erythema, or tenderness NEUROLOGICAL: Cranial nerves II through XII grossly intact. Normal speech, normal gait SKIN: Warm, Dry, normal turgor, no rashes or lesions noted. - Medical Decision Making 11/25/18 21:29 Pt feels better. She is ready to go home. 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 Pt has no other complaints. She is reassured that she is ok Heart Score/ECG Review - ECG Intrepretation Rhythm: Regular Rhythm - [place]: Normal - ECG Impressions Normal ECG: Yes Non-specific ST Elevation: No Ischemic Changes: No Bradycardia: No Torsades josef Pointes: No WPW: No
--- NOTE | 2018-11-26 11:39 | EKG ---
Test Reason : Blood Pressure : / mmHG Vent. Rate : 074 BPM Atrial Rate : 074 BPM P-R Int : 160 ms QRS Dur : 090 ms QT Int : 360 ms P-R-T Axes : 050 059 047 degrees QTc Int : 399 ms NORMAL SINUS RHYTHM NORMAL ECG WHEN COMPARED WITH ECG OF 02-JAN-2018 17:30, NO SIGNIFICANT CHANGE WAS FOUND Confirmed by PA STAPLES MD ([id number]) on 11/26/2018 11:39:11 AM Referred By: Confirmed By:PA STAPLES MD
== END 2018-11-25 21:43 | disposition home or self-care (01) ==
LOC: JER 19:08
PROC: 3E0337Z Introduction of Electrolytic and Water Balance Substance into Peripheral Vein, Percutaneous Approach (ICD-10-PCS; principal; 2018-11-25)
DX: F41.0 Panic disorder [episodic paroxysmal anxiety] (principal); R06.02 Shortness of breath
CPT/HCPCS: 36415; 80053; 82550; 84484; 84703; 85025; 93005; 93010; 96360; 99283-25; J7030